=== PATIENT | male | born 1970 | race Caucasian/White ===

== ENCOUNTER 2024-11-15 03:27 | Emergency (ER) | payer MEDICAID, SELFPAY ==
[2024-11-15 03:32] VITALS: BMI 29.5
[2024-11-15 03:33] VITALS: BP 195/128; PULSE 87; RESP 19; TEMP 36.4; O2SAT 97
--- NOTE | 2024-11-15 03:53 | PD.EDMEDCL ---
ED Medical Clearance RME/HPI General Chief complaint: Medical Clearance Stated complaint: RESIDENTIAL CLEARANCE/ELEVATED BP Time Seen by Provider: 11/15/24 03:52 Arrival date/time: 11/15/24 03:27 RME / HPI RME / HPI Narrative: Dr. Guerra?s Main ED Evaluation: 54yo male presents for a medical screening by department of public safety after noted hypertension. Patient reports longstanding history of HTN without any specific treatment. Reports having intermittent headaches with exertion. No visual disturbance, chest pain, shortness of breath, or lateralizing motor or sensory disturbance. PMH includes HTN. PSH includes appendectomy. Occasional alcohol consumption, denies illicit drug use. NKDA. Related Information Previous Rx's ?Medication ?Instructions ?Recorded lisinopril 5 mg tablet 5 mg PO QDAY #30 tabs 11/15/24 Allergies Allergy/AdvReac Type Severity Reaction Status Date / Time hydromorphone (From Dilaudid) Allergy Hypotension Verified 11/15/24 04:35 Bee Stings Allergy Uncoded 01/03/13 20:21 Review of Systems Review of Systems Systems Reviewed: All systems reviewed, normal except as documented ED Exam Narrative Physical exam: GENERAL APPEARANCE: alert and oriented x 4, well-developed, well-nourished, interacting appropriately, no acute distress VITALS: All vitals were reviewed and the pulse ox is 97% on room air, which is normal according to my interpretation. Markedly hypertensive with BP readings of 190/115. HEENT: Normocephalic, atraumatic; pupils equal, round, reactive to light; EOMI; disc margins without definite papiledema; mucous membranes pink, moist; oropharynx clear NECK: Supple, no carotid bruit LUNGS: CTABL; no wheezes, no rales, no rhonchi HEART: Regular rate, regular rhythm; normal S1, S2; no murmurs ABDOMEN: non distended; soft, no tenderness, no guarding BACK: no CVA tenderness EXTREMITIES: atraumatic; slight pedal edema NEUROLOGIC: awake; alert and oriented x4; cranial nerves II-XII grossly intact; no focal sensory or motor deficits PSYCHIATRIC: appropriate mood and affect SKIN: warm, dry, normal color; no rashes Course Quality Measures none Orders Category Date Time Status EKG (ED ONLY) *Do not use* NOW Care 11/15/24 04:07 Completed EKG (ED Only) Stat Exams 11/15/24 04:06 Draft CBC [CBC] Stat Lab 11/15/24 04:24 Completed CMP [Comprehensive Metabolic Panel] Stat Lab 11/15/24 04:24 Completed Urinalysis, C/S if Indicated Stat Lab 11/15/24 04:06 Ordered cloNIDine HCL [Catapres] Med 11/15/24 04:06 Discontinued 0.1 mg PO X1 ONE Vital Signs Vital signs: Vital Signs Temperature 97.6 F 11/15/24 03:33 Pulse Rate 87 11/15/24 03:33 Respiratory Rate 19 11/15/24 03:33 Blood Pressure 195/128 H 11/15/24 03:33 Pulse Oximetry (%) 97 11/15/24 03:33 Oxygen Delivery Method Room Air 11/15/24 03:33 Medical Clearance MDM Narrative MDM Narrative:: Scribe Attestation: 11/15/24 - Ella Iraheta am scribing for and in the presence of Dr. Guerra. 54yo male presents for a medical screening by department of public safety after noted hypertension. Patient reports longstanding history of HTN without any specific treatment. Please see PE findings. Lab markers demonstrated normal CBC and chemistries. 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 Patient remains neurologically intact and is medically clear for transport and incarceration. Will initiate lisinopril therapy. Patient data External records reviewed:: [facility] previous records (Per chart review, patient has no previous ED visits or admissions to this facility.) Clinical information provided by:: patient Social determinants that could affect healthcare access:: none Patient has the following chronic illnesses:: HTN How is presenting disease/condition affected by chronic disease/condition?: caused by Evaluation data The following diagnostics were reviewed and interpreted by me:: lab results and EKG tracing(s) Lab and/or radiology exams considered but not ordered:: none Interpretation Summary: EKG done at 0439, sinus rhythm, rate of 81, no acute pathological ST segment changes, no ectopy, normal intervals, left axis deviation, according to my interpretation. Medications / Prescriptions Medications or Prescriptions considered but not ordered:: none Medication administrations:: Medication Administration History Discontinued Medications Clonidine (Clonidine Hcl 0.1 Mg Tablet) 0.1 mg PO X1 ONE Stop: 11/15/24 04:07 Last Admin: 11/15/24 04:32 Dose: 0.1 mg Documented By: ABNER see above Consultations Consultation(s) initiated? (list below): No Diagnosis Medical Clearance Differential Diagnosis: other (uncontrolled hypertension, hypertensive urgency, medical clearance for incarceration) Most likely diagnosis given after review of the tests above:: see clinical impression below Admission Indicated Admission indicated?: not indicated Admission Request Was there a request for admission?: No Disposition Plan Disposition Plan: Discharge Discharge Attestation Discharge Attestation: The patient and all family members were given an opportunity to ask questions and understood the discharge instructions. Discharge instructions specifically effects, indications for sooner follow up or return to the emergency department, and the expected course of current diagnosis. Patient condition: Stable Discharge Plan Plan Patient Disposition: Care Home/Court/Law Discharge Disposition comment: Stable Prescriptions/Referrals Prescriptions/Med Rec: New lisinopril 5 mg tablet 5 mg PO QDAY Qty: 30 1RF Referrals: No Primary/Family,Physician [Primary Care Provider] - In 1 week Problem List Clinical Impression: Hypertension Patient/Caregiver Discharge Instructions Discharge Activity: activity as tolerated Education Materials: Controlling High Blood Pressure, What Is High Blood Pressure?, ED Hypertension, New (Begin Treatment) Additional Instructions: Begin lisinopril 5 mg daily. Increase to 5 mg twice daily systolic blood pressure greater than 160 or diastolic greater than 95 consistently. Print Language: Sudanese
--- NOTE | 2024-11-15 04:06 | EKG_ITS ---
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
[2024-11-15 04:31] LABS: Basophils # (Auto) 0.1 Thou/mm3 (0.0-0.2); Basophils % (Auto) 1 % (0-2.5); Eosinophils # (Auto) 0.3 Thou/mm3 (0.0-0.5); Eosinophils % (Auto) 3 % (0-10); Hematocrit 41.2 % (41.0-53.0); Hemoglobin 13.7 g/dL (13.5-16.0); Immature Granulocytes Auto 0.03 Thou/mm3 (0.00-0.00); Lymphocytes # (Auto) 1.8 Thou/mm3 (1.0-4.8); Lymphocytes % (Auto) 17 % (10-50); Mean Corpuscular HGB Conc 33.3 g/dl (31.0-37.0); Mean Corpuscular Hemoglobin 31.1 pg (25.0-35.0); Mean Corpuscular Volume 93 fL (80-100); Monocytes # (Auto) 0.8 Thou/mm3 (0.0-0.8); Monocytes % (Auto) 8 % (0-12); Neutrophils # (Auto) 7.4 Thou/mm3 (1.8-7.7); Neutrophils % (Auto) 71 % (37-80); Nucleated Red Blood Cell # 0.00 Thou/mm3 (0.00-0.00); Nucleated Red Blood Cell % 0 /100 WBC (0); Platelet Count 256 Thou/mm3 (140-440); RDW Standard Deviation 44.0 fL (35.1-43.9); Red Blood Count 4.41 Miln/mm3 (4.50-5.90); White Blood Count 10.5 Thou/mm3 (3.8-10.6)
[2024-11-15 04:32] VITALS: BP 176/124; PULSE 82
[2024-11-15 04:47] LABS: Alanine Aminotransferase 17 U/L (10-49); Albumin, Serum 4.2 gm/dL (3.5-5.0); Albumin/Globulin Ratio 1.7 (1.2-2.2); Alkaline Phosphatase 75 U/L (46-116); Anion Gap 8 (7-16); Aspartate Amino Transferase 21 U/L (0-34); BUN/Creatinine Ratio 10 Ratio (12-20); Bilirubin,Total 0.7 mg/dL (0.3-1.2); Blood Urea Nitrogen 10 mg/dL (9-23); Calcium 9.2 mg/dL (8.3-10.6); Calcium (Corrected) 9.2 mg/dL (8.5-10.1); Carbon Dioxide 28.4 mMol/L (20.0-31.0); Chloride 106 mMol/L (98-107); Creatinine (Component) 1.0 mg/dL (0.6-1.3); Estimated Creatinine Clearance 106.2 mL/min (>60); Globulin 2.5 gm/dL (2.3-3.5); Glucose 106 mg/dL (74-106); Osmolality,Calculated 282 (275-295); Potassium 3.5 mMol/L (3.4-5.1); Sodium 142 mMol/L (136-145); Total Protein 6.7 gm/dL (5.7-8.2); eGFR > 60 See Note
[2024-11-15 05:46] VITALS: BP 142/102; PULSE 73; RESP 16
[2024-11-15 06:41] VITALS: BP 149/108; PULSE 71; RESP 16; O2SAT 95
== END 2024-11-15 06:45 ==
PROVIDERS: Emergency Provider Emergency Medicine
DX: Z02.89 Encounter for other administrative examinations (principal); I45.10 Unspecified right bundle-branch block; I10 Essential (primary) hypertension
CPT/HCPCS: 36415; 80053; 81001; 85025; 93005; 99283; A9270